=== PATIENT | male | born 1975 | race Caucasian/White ===

== ENCOUNTER → 2017-04-15 | Outpatient (CLI) | payer OTHER ==
[2017-04-15 15:51] LABS: PLATELET COUNT, AUTOMATED 272 K/uL (150-450)
[2017-04-15 16:05] LABS: LDL CHOLESTEROL 135 mg/dl
== END ==
LOC: LAB 15:16
PROVIDERS: ATTEND Nurse Practitioner Family
DX: Z00.00 Encounter for general adult medical examination without abnormal findings (principal)
CPT/HCPCS: 36415; 82040; 82247; 82310; 82374; 82435; 82465; 82565; 82947; 83718; 84075; 84132; 84155; 84295; 84443; 84450; 84460; 84478; 84520; 85025